=== PATIENT | male | born 1990 ===

== ENCOUNTER 2017-12-02 18:42 | Emergency (ER) | payer OTHER ==
[2017-12-02 18:49] VITALS: BP 122/81; PULSE 106; TEMP 98.3; O2SAT 97
[2017-12-02] MEDS ORDERED: Bacitracin 500 Units/gm Oint Foilpak UD TOP ONE (19:05)
[2017-12-02] MEDS ORDERED: Lidocaine 1% Inj (20ml) INFIL ONE (19:06)
--- NOTE | 2017-12-02 19:08 | C.PDOC ---
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 pt was fixing a heater and his hand got caught when he was pulling it out. last tdap unk. no numbness or tingling. no difficulty moving any fingers. Time Seen by Provider: 12/02/17 19:01 Chief Complaint (Nursing): Abnormal Skin Integrity History Per: Patient, Family History/Exam Limitations: no limitations Onset/Duration Of Symptoms: Hrs (1) Current Symptoms Are (Timing): Still Present Location Of Injury: Right: Hand (dorsum) Quality Of Symptoms: Painful Severity: Moderate Pain Scale Rating Of: 8 Past Medical History Reviewed: Historical Data, Nursing Documentation, Vital Signs Vital Signs: Last Vital Signs Temp 98.3 F 12/02/17 18:45 Pulse 106 H 12/02/17 18:45 Resp 16 12/02/17 19:59 BP 122/81 12/02/17 18:45 Pulse Ox 97 12/03/17 00:33 - Medical History PMH: No Chronic Diseases Family History: States: Unknown Family Hx - Social History Hx Alcohol Use: No Hx Substance Use: No - Immunization History Hx Tetanus Toxoid Vaccination: Yes Hx Influenza Vaccination: No Hx Pneumococcal Vaccination: No Review Of Systems Constitutional: Negative for: Fever, Chills Musculoskeletal: Positive for: Hand Pain Skin: Positive for: Other (laceration) Neurological: Negative for: Weakness, Numbness Physical Exam - Physical Exam Appears: Non-toxic, Other (in pain) Skin: Warm, Dry, Other (multiple small abrasions to dorum right hand) Extremity: Tenderness (at site of laceration and surrounding area), Other (2 cm laceration to dorsum right hand over 2nd and 3rd metacarpals. from of all fingers. no tendon injuries noted. ) Pulses: Right Radial: Normal Neurological/Psych: Oriented x3, Normal Speech, Normal Cognition, Normal Motor, Normal Sensation ED Course And Treatment O2 Sat by Pulse Oximetry: 97 Laceration - Laceration Repair right hand Wound Length (In cm): 2 Description Of Wound: Linear Wound Cleansed With: Betadine Anesthesia: Lidocaine 1% Wound Examination: Irrigated With Saline, No FB With Wound Exploration, No Tendon Injury With Wound Exploration Wound Closure: Suture (4-0 ethilon) Suture Technique And Material Used: Interrupted (#4) Wound Complexity: Simple Medical Decision Making Medical Decision Making: laceration to right hand- lac repair, tdap booster. Disposition Counseled Patient/Family Regarding: Diagnosis, Need For Followup, Rx Given - Disposition Referrals: [facility] [Outside] Disposition: HOME/ ROUTINE Disposition Time: 19:49 Condition: IMPROVED Additional Instructions: Por favor, mantenga la herida tapada y seca hasta maana por la noche. Luego qu rosen el vendaje, lvalo suavemente con agua y jabn y scalo. Aplique ungento antibitico y cubra con un vendaje. Haz esto a diario. Vaya a la clnica o a dumont mdico en 10 knutson para la extraccin de la sutura. Regrese a la woodrow de emergencias para detectar cualquier signo de infeccin, nohelia enrojecimiento, hinchazn o calor en el kristyn suturada. Please keep wound covered and dry until tomorrow night. Then take off bandage, wash gently with soap and water and pat dry. Apply antibiotic ointment and cover with bandaid. Do this daily. Go to clinic or your doctor in 10 days for suture removal. Return to ER for any signs of infection such as redness, swelling or warmth to sutured area. Prescriptions: Bacitracin OINT 1 applic TOP BID #1 tube Ibuprofen [Motrin] 600 mg PO TID #30 tab Instructions: Care For Your Stitches (ED), Laceration (ED) Forms: Gen Discharge Inst Trin[place]adian, [employer] (Trinidadian), Work Excuse Print Language: TELUGU - Clinical Impression Clinical Impression: Laceration of right hand, Abrasion of right hand
[2017-12-02] MEDS ORDERED: Bacitracin 500 Units/gm Oint Foilpak UD ONE (19:11)
[2017-12-02] MEDS ORDERED: Lidocaine 1% Inj (20ml) ONE (19:11)
[2017-12-02 20:00] VITALS: RESP 16
== END 2017-12-02 19:59 | disposition home or self-care (01) ==
LOC: C.ER 18:42
DX: S61.411A Laceration without foreign body of right hand, initial encounter (principal); W23.0XXA Caught, crushed, jammed, or pinched between moving objects, initial encounter